=== PATIENT | male | born 1990 | race Caucasian/White ===

== ENCOUNTER 2025-08-29 16:02 | Emergency (ER) | payer OTHER, SELFPAY ==
--- OUTSIDE RECORDS SUMMARY | 2025-08-29 16:10 | XMS_ITS | Encounter Summary ---
Author Organization [facility] Address [facility] [place] [address] Care Team Providers Care Raw Cheese Worker Name Role Phone Ada Gonzales [facility] Primary Care Provider [phone] Stephan Diggs MD Unavailable Unavailable Sis Mohr MD Unavailable [phone]- [phone] Mohinder Salinas MD Unavailable [phone] Pura Duran MD Unavailable [phone] Anai Kat MD Primary Care Provider [phone] Encounter Details Date Type Department Care Team (Late st Contact Info) Description 03/22/2022 MyChart Message Enc [facility] Family Medicine [address] [address] Gonzales [address] [address] Diabetic test Social History Tobacco Use Types Packs/Day Years Used Date Smoking Tobacco: Never Smokeless Tobacco: Never Alcohol Use Standard Drinks/Week Comments Yes 0 (1 standard drink = 0.6 oz pur e alcohol) rarely PHQ-2 Answer Date Recorded PHQ-2 Score - If the patient scores above 3, please move on to questions 3-9 0 03/21/2022 Sex and Gender Information Value Date Recorded Sex Assigned at Male 04/02/2025 11:01 AM CDT Legal Sex Male 7:35 PM CDT Gender Identity Not on file Sexual Orientation Not on file COVID-19 Exposure Response Date Recorded In the last 10 days, have yo u been in contact with someone who was confirmed or suspected to have Coronavirus/COVID-19? No / Unsure 03/21/2022 8:44 AM CDT documented as of this encounter Plan of Treatment Not on file documented as of this encounter Visit Diagnoses Not on filedocumented in this encounter Additional Health Concerns Infection Onset Date Last Indicated Resolved Time COVID-19 Rule Out 04/06/2022 04/06/2022 04/07/2022 4:06 PM CDT Assessment Noted Time PHQ-9 Depression Total Score: 0 03/15/20 11:02 AM CDT documented as of this encounter Care Teams Raw Cheese Worker Relationship Specialty Start Date End Date Ada Gonzales [facility] PCP - General Nurse Practitioner Family 07/01/18 809/26 Anai Kat MD [address] [place] [address] PCP - General FAMILY PRACTICE 05/04/24 Stephan Diggs MD CARDIOLOGY 12/30/18 Sis Mohr MD DERMATOLOGY 03/15/21 Mohinder Salinas MD [address] [facility] [address] [place] [id number] PULMONARY DISEASE 03/15/21 Pura Duran MD [address] [address] CARDIOLOGY 03/21/22 documented as of this encounter
--- OUTSIDE RECORDS SUMMARY | 2025-08-29 16:10 | XMS_ITS | Clinical Summary ---
Author Organization [facility] Address [facility]ly [facility] [place] [address] Care Team Providers Care Gasket Supervisor Name Role Phone Ada Gonzales NP Primary Care Provider Freeman Street MD Unavailable Allergies Active Allergy Reactions Criticality Noted Date Comments Lisinopril Swelling Medium Facial Swelling Minocycline Swelling,Rash Medium 04/09/2011 Reaction: Facial Swelling Medications aspirin 81 mg enteric coated tablet Take 1 tablet (81 mg total) by mouth every morning Active HYDROcodone-eitan taminophen (NORCO) 5-325 mg per tabletIndicatio ns:Pain Take 1-2 tablets by mouth every 4 (four) hours as needed for pain 30 tablet 4 Active Additional Information Patient not taking.Reported on 03/11/2025 docusate sodium (COLACE) 100 mg capsuleIndicati ons:constipatio n,TAKE WHILE ON NARCOTICS OR IF CONSTIPATED. STOP IF DIARRHEA OR LOOSE STOOLS Take 1 capsule (100 mg total) by mouth 2 (two) times a day 4 Active Additional Information Patient not taking.Reported on 03/11/2025 ketoconazole (NIZORAL) 2 % creamIndication s:Tinea corporis Apply topically daily 60 g 6 4 Active Additional Information Patient not taking.Reported on 03/11/2025 ketoconazole (NIZORAL) 2 % shampooIndicati ons:Tinea corporis Apply topically 3 (three) times a week Apply to damp skin, lather, leave on 5 minutes, and rinse 120 mL 3 4 Active Additional Information Patient not taking.Reported on 03/11/2025 semaglutide (Wegovy) 0.25 mg/0.5 mL auto-injectorIn dications:cardi ovascular event risk reduction in obesity Inject 0.25 mg under the skin every 7 days 2 mL 1 5 Active losartan (COZAAR) 100 mg tablet TAKE 1 TABLET BY MOUTH EVERY DAY 90 tablet 1 5 Active metoprolol XL (TOPROL-XL) 50 mg extended release tablet TAKE 1 TABLET BY MOUTH EVERY DAY 90 tablet 1 5 Active Active Problems Problem Noted Date Diagnosed Date Irreducible umbilical hernia 12/04/2023 Incarcerated umbilical hernia 12/04/2023 Hypertension 03/19/2023 Assessment & Plan (03/24/2024 10:22 AM CDT): SBP stable. Continue losartan 100 mg daily, and metoprolol 50 mg xl daily. BMP today. SBP stable at home 120 systolic. We made no changes today. Assessment & Plan (03/19/2023 10:38 AM CDT): SBP remains marginal. Increase losartan to 100 mg daily, BMP in one week with FLP. Encouraged exercise routine. And BP monitoring at home, one hour after medications. Obstructive sleep apnea 09/22/2021 Assessment & Plan (09/30/2024 10:50 AM SENIOR ADMINISTRATIVE SERVICES OFFICER): Due to ongoing symptoms, the patient will continue CPAP at 5-15 cm water pressure. Denied need for supplies. DME [facility] Assessment & Plan (09/25/2023 2:04 PM SENIOR ADMINISTRATIVE SERVICES OFFICER): Patient continue to wear his CPAP at auto titrating range 5-15 cm water pressure while sleeping. His DME is [facility] Assessment & Plan (09/25/2022 1:57 PM SENIOR ADMINISTRATIVE SERVICES OFFICER): Will continue with auto titrating CPAP set at 5-15 cm water pressure. Denied need for supplies. DME [facility] Assessment & Plan (09/22/2021 2:16 PM SENIOR ADMINISTRATIVE SERVICES OFFICER): Patient continue to wear CPAP in auto titrating range of 5-15 cm water pressure while sleeping. His DME is [facility]. I have sent an order over for new CPAP mask. 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 Coronary arteriosclerosis in [place] artery 03/10 Assessment & Plan (03/24/2024 10:23 AM CDT): Single vessel CAD, sp TALHA to LAD in 2011. Stable denies chest pain. Continue BB, ARB, Statin and ASA. Lipids in April 2023 stable LDL 50. Will check BMP and Lipid profile today and follow up with Dr. Cheung to establish care in 1 year. Assessment & Plan (03/19/2023 10:37 AM CDT): Single vessel CAD, sp TALHA to LAD in 2011. Stable denies chest pain. Continue BB, ARB, Statin and ASA. Lipids in March 2022, stable. Will check BMP and Lipid profile in one week. 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 Disease of pericardium 07/15/2010 Resolved Problems Problem Noted Date Diagnosed Date Resolved Date Patellofemoral pain syndrome 01/20/2014 12/07/2023 Fatigue 07/16/2013 12/07/2023 Chest pain 07/15/2010 12/07/2023 Surgical History Surgery Date Site/Laterality Comments CYST REMOVAL 09/03/2007 - 09/02/2008 neck cyst Medical History Medical History Date Comments Old myocardial infarction Histor y of myocardial infarction - (Added by TW Conv) Hypertension Adhd Migraine History of methicillin resis tant Staphylococcus aureus infection History of methicillin resistant Staphylococcus aureus infection - (Added by TW Conv) Family History Medical History Relation Name Comments Bleeding Disorder Father Family his tory of bleeding disorder - (Added by TW Conv) Coronary artery disease Father sten ts in 50s Arthritis Mother Family history of arthritis - (Added by TW Conv) Cancer Mother Family history of malignant neoplasm - (Added by TW Conv) Diabetes Mother Family history of diabetes mellitus - (Added by TW Conv) Heart disease Mother Family history of cardiac disorder - (Added by TW Conv) Hypertension Mother Family history of hypertension - (Added by TW Conv) Heart attack Paternal Grandfather Relation Name Status Comments Father Mother Paternal Grandfather Social History Tobacco Use Types Packs/Day Years Used Date Smoking Tobacco: Never Passive Smoke Exposure: Never Smokeless Tobacco: Never Tobacco Cessation:Counseling Given: Not Answered Alcohol Use Standard Drinks/Week Comments Yes 0 (1 standard drink = 0.6 oz pur e alcohol) AUDIT-C Answer Date Recorded Q1: How often do you have a drink containing alc ohol? Monthly or less 09/30/2024 Average Number of Drinks Not on file 025 Frequency of Binge Drinking Not on file 09/04 Personal Safety Answer Date Recorded Have you ever been in or are you currently in a harmful physical or emotional relationship or is someone making you feel afraid or unsafe? Denies 12/13/2023 Sex and Gender Information Value Date Recorded Sex Assigned at Not on file Legal Sex Male 9:53 PM SENIOR ADMINISTRATIVE SERVICES OFFICER Gender Identity Not on file Sexual Orientation Not on file Last Filed Vital Signs Vital Sign Reading Time Taken Comments Blood Pressure 115/77 03/11/2025 11:37 AM CDT Pulse 63 03/11/2025 11:37 AM CDT Temperature 36.2 C (97.1 F) 09/30/2024 10:35 AM SENIOR ADMINISTRATIVE SERVICES OFFICER Respiratory Rate 18 09/30/2024 10:35 AM SENIOR ADMINISTRATIVE SERVICES OFFICER Oxygen Saturation 96% 03/11/2025 11:37 AM CDT Inhaled Oxygen Concentration - - Weight 111.1 kg (245 lb) 03/11/2025 11:37 AM CDT Height 180.3 cm (5' 11) 03/11/2025 11:37 AM CDT Body Mass Index 34.17 03/11/2025 11:37 AM CDT Plan of Treatment Health Maintenance Due Date Last Done Comments Depression Screening 1988 Hepatitis C Screening 1988 Varicella Vaccines (1 of 2 - 13+ 2-dose series) 2001 Regular Well Visit/Exam 18-64 2006 HPV Vaccines (1 - 3-dose SCDM series) 2015 Covid-19 Vaccine ( - season) 2025 11/11/2020, 10/21/2020 Influenza Vaccine (#1) 2025 , 06/03/2019, 06/03/2018, Additional history exists DTaP/Tdap/Td Vaccine (4 - Td or Tdap) 06/15/2025 06/15/2015, 09/03/2014, 09/03/2014 Hepatitis B Screening Completed 09/05/1999 Pneumococcal vaccine <65 Aged Out No longer eligible based on patient's age to complete this topic Medical Devices Implanted Type Area Interlocker Maintainer Device Identifier Shelf Expiration Date Model / Serial / Lot [employer]/C R Bard Ventralex St Sepra Sorbaflex 3.2in [place] Open Bioresorbable [id number] - [id number] Implanted:Qty: 1 on 12/13/[address] MD at [facility] N/A: Umbilical [employer] Bard 03/30/2025 [id number] / / [id number] Insurance [facility] [employer] Address: [facility] [id number] [place] [address] [facility] Care Teams Gasket Supervisor Relationship Specialty Start Date End Date Ada Gonzales NP PCP - General Nurse Practitioner 03/11/[address] MD [address] [address] Consulting Physician General Surgery 12/13/23
--- OUTSIDE RECORDS SUMMARY | 2025-08-29 16:10 | XMS_ITS | Clinical Summary ---
Author Organization [facility] Address [address] [place] [address] Care Team Providers Care Family Law Legal Assistant Name Role Phone Stephan Diggs MD Unavailable Unavailable Sis Mohr MD Unavailable [phone] Mohinder Salinas MD Unavailable [phone] Pura Duran MD Unavailable [phone] Anai Kat MD Primary Care Provider [phone] Allergies Active Allergy Reactions Criticality Noted Date Comments Lisinopril Swelling Medium Facial Swelling Minocycline Other (see comment),Swelling 2010 Medications aspirin EC 81 MG EC tablet Take 1 tablet by mouth daily. 12/17/2017 Active metoprolol succinate ER (TOPROL-XL) 50 MG 24 hr tablet 03/10/2022 Act sienna losartan (COZAAR) 50 MG tablet 2022 Active Active Problems Problem Noted Date Diagnosed Date Hypertension 03/19/2023 Obstructive sleep apnea 09/22/2021 Overview (03/21/2022): Last Assessment & Plan: Patient continue to wear CPAP in auto titrating range of 5-15 cm water pressure while sleeping. His DME is [facility]. I have sent an order over for new CPAP mask. 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 Prediabetes 01/01/2019 Overview (04/02/2025): - last A1c 5.8 (2022) - today 5.6, counseled to continue lifestyle interventions Elevated LFTs 01/01/2019 Follicle cyst 07/01/2018 History of myocardial infarction, greater than 8 weeks ago 12/17/2017 Hypertension, essential, benign 12/17/2017 Mixed hyperlipidemia 12/17/2017 Encounter for routine adult health examination without abnormal findings 12/11/2017 Overview (04/02/2025): - vaccines: UTD - colon cancer screening: due at age 43 - denies family history of prostate cancer, denies urinary symptoms, does not have indication for PSA - RTC 1 yr, or sooner as needs arise Pericardial cyst 03/19/2017 Coronary arteriosclerosis in [place] artery 03/10 Patellofemoral pain syndrome 01/20/2014 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 Acne vulgaris 08/25/2011 Disease of pericardium 07/15/2010 Resolved Problems Problem Noted Date Diagnosed Date Resolved Date Fatigue 07/16/2013 12/30/2018 Chest pain 07/15/2010 12/30/2018 Immunizations Immunization Administration Dates Next Due Dtap (Generic) 09/03/2014 Fluzone 6 Months+ Quad (0.5 mL Prefilled Syringe) 07/08/2020 Influenza (Generic) 06/03/2019,06/03/2018 Influenza Adult (Generic) 06/03/2019,09/2017,06/15/2015,2013,06/24/2013 Tdap (Boostrix) 06/15/2015 Tdap (Generic) 09/03/2014 Family History Medical History Relation Comments Arthritis Father Hyperlipidemia Father Hypertension Mother Relation Status Comments Father Alive Mother Alive Social History Tobacco Use Types Packs/Day Years Used Date Smoking Tobacco: Never Smokeless Tobacco: Never Tobacco Cessation:Counseling Given: No Alcohol Use Standard Drinks/Week Comments Yes 0 (1 standard drink = 0.6 oz pur e alcohol) rarely PHQ-2 Answer Date Recorded Patient Health Questionnaire-2 Score 0 04/02/2025 Sex and Gender Information Value Date Recorded Sex Assigned at Male 04/02/2025 11:01 AM CDT Legal Sex Male 7:35 PM CDT Gender Identity Not on file Sexual Orientation Not on file Last Filed Vital Signs Vital Sign Reading Time Taken Comments Blood Pressure 129/78 04/02/2025 11:03 AM CDT Pulse 64 04/02/2025 11:03 AM CDT Temperature 36.7 C (98.1 F) 04/02/2025 11:03 AM CDT Respiratory Rate 16 04/02/2025 11:03 AM CDT Oxygen Saturation 95% 04/02/2025 11:03 AM CDT Inhaled Oxygen Concentration - - Weight 110 kg (242 lb 6.4 oz) 04/02/2025 11:03 A M CDT Height 180.3 cm (5' 11) 04/02/2025 11:03 AM CDT Body Mass Index 33.81 04/02/2025 11:03 AM CDT Plan of Treatment Health Maintenance Due Date Last Done Comments ASCVD Statin 1988 Hepatitis C 2006 Hepatitis B Vaccines (1 of 3 - 19+ 3-dose series) 2007 Pneumococcal Vaccine: Pediatrics (0 to 5 Years) and At-Risk Patients (6 to 49 Years) (1 of 2 - PCV) 2007 ASCVD LDL 03/21/2023 03/21/2022, 03/03, 12/25/2019, Additional history exists COVID-19 Vaccine ( - 2024- season) 2025 11/11/2020, 10/21/2020 Influenza Adult (#1) 2025 07/08/2020, 06/03/2019, 06/03/2019, Additional history exists DTaP, Tdap and Td Vaccines (4 - Td or Tdap) 06/15/2025 06/15/2015, 09/03/2014, 09/03/2014 Annual Physical 04/02/2026 04/02/2025, 0805/2023, 03/21/2022, Additional history exists HPV Vaccines (1 - 3-dose SCDM series) 04/03/2029 Postponed from 2015 (Per Provider Recommendation) PHQ-2 (Physician Fischer) Completed 04/02/2025 Hepatitis A Vaccines Aged Out No long er eligible based on patient's age to complete this topic Meningococcal B Vaccine Aged Out No l onger eligible based on patient's age to complete this topic Meningococcal Vaccine Aged Out No octavio denny eligible based on patient's age to complete this topic RSV Immunizations Under 20 Months Aged Out No longer eligible based on patient's age to complete this topic Procedures Procedure Name Priority Date/Time Associated Diagnosis Comments LIPID PANEL Routine 03/21/2022 9:21 AM CDT Routine general medical examination at a health care facility from Last 3 Months or Most Recently Relevant to Health Maintenance Results * LIPID PANEL (03/21/2022 9:21 AM CDT) CHOLESTEROL 112 <200 MG/DL 03/21/2022 3:20 PM CDT [facility] TRIGLYCERIDES 94 <150 MG/DL 03/21/2022 3:20 PM CDT [facility] HDL 51 >40 MG/DL 03/21/2022 3:20 PM CDT [facility] LDL-C 42 <100 MG/DL 03/21/2022 3:20 PM CDT [facility] VLDL CALCULATION 19 5 - 28 MG/DL 03/21/2022 3:20 PM CDT [facility] CHOL/HDL RATIO 2.2 0.0 - 4.0 03/21/2022 3:20 PM CDT [facility] LDL/HDL 0.8 0.41 - 2.13 03/21/2022 3:20 PM CDT [facility] NON HDL CHOLESTEROL 61 <140 MG/DL 03/21/2022 3:20 PM CDT [facility] 03/21/2022 9:21 AM CDT Ada Gonzales [facility] Final Resul t -RAYNE MORGANLamar SURESH [address] [place] [address], [place] [phone] from Last 3 Months or Most Recently Relevant to Health Maintenance Insurance [employer] Care Teams Family Law Legal Assistant Relationship Specialty Start Date End Date Anai Kta MD [address] [place] [address] PCP - General FAMILY PRACTICE 05/04/24 Stephan Diggs MD CARDIOLOGY 12/30/18 Sis Mohr MD DERMATOLOGY 03/15/21 Mohinder Salinas MD [address] [place] [id number] PULMONARY DISEASE 03/15/21 [place] [address] [place] [id number] CARDIOLOGY 03/21/22
[2025-08-29 16:12] VITALS: BP 142/83; PULSE 58; RESP 18; TEMP 36.1; O2SAT 97
--- NOTE | 2025-08-29 16:15 | ED.GENADULT ---
HPI - General Adult General Chief complaint: Headache Stated complaint: Head Pain Time Seen by Provider: 08/29/25 16:17 Source: patient Mode of arrival: ambulatory Limitations: no limitations History of Present Illness HPI narrative: 35-year-old male patient presents to [facility] with complaints of a headache the past 3 days. Patient states he does not have any history of migraine headaches. Patient is currently taking high blood pressure medications. Patient denies any chest pain or shortness of breath. Denies any vision changes. Denies any ear pain, sore throat or any sick symptoms that he is aware of. Patient states he did take some Excedrin today about 2 hours ago which she states has helped a little bit but states he has not been taking anything consistently. Denies any nausea vomiting or diarrhea. Related Data Allergies Allergy/AdvReac Type Severity Reaction Status Date / Time No Known Allergies Allergy Verified 08/29/25 16:14 Review of Systems Review of Systems: CONSTITUTIONAL: Denies fever, chills, or sweats. EYES: Denies visual changes, redness, or discharge. ENT: Denies rhinorrhea, congestion, sore throat, or otalgia. CARDIOVASCULAR: Denies chest pain, palpitations, or edema. RESPIRATORY: Denies cough or dyspnea. GASTROINTESTINAL: Denies abdominal pain, nausea, vomiting, or diarrhea. GENITOURINARY: Denies dysuria or hematuria. SKIN: Denies rash or itching. MUSCULOSKELETAL: Denies back pain, joint pain, or myalgia. NEUROLOGIC: Positive headache, denies numbness, or weakness. PSYCHIATRIC: Denies anxiety or depression. [facility] Past Medical History Medical History (Updated 08/29/25 @ 16:47 by Darleen Solo APRN) Hypertension Comments At the time of my signature I agree with nursing past medical history, surgical, social, and family history. There is no relevant family history pertinent to the presenting complaint. Exam Narrative: GENERAL: Well-appearing, well-nourished, and in no acute distress. HEAD: Normocephalic, atraumatic. EYES: PERRLA and EOMI. ENT: Nares clear, no rhinorrhea or epistaxis. Mucous membranes moist. bilateral TMs are clear no erythema or foreign bodies the canal. Posterior pharynx no erythema, tonsillar enlargement, exudates or lesions present. NECK: Supple. No lymphadenopathy CHEST: Clear to auscultation. No respiratory distress. HEART: Regular rate and rhythm. No murmur heard. Normal peripheral pulses. ABDOMEN: Soft, nontender, nondistended, normal active bowel sounds. EXTREMITIES: Normal range of motion. No edema. SKIN: Warm, dry, no rash. NEURO: Alert and oriented x4, GCS 15. Cranial nerves II through XII grossly intact. No focal neurological deficits. Normal muscle strength and tone. Normal deep tendon reflexes. Negative Babinski, normal finger to nose coordination he had normal heel to blas glide. Speech is clear. Normal gait. Negative Romberg and no pronator drift Course Course Level of Care: Express Care Visit Reevaluation(s) Reevaluation #1: re-evaluated patient notified him that his point of care testing for flu and COVID today are negative. Discussed with him that the EKG is pretty unremarkable as far as any acute issues except for his heart rate is a little low. Discussed with patient to continue to take the Excedrin for his headache may also take an antihistamine such as Zyrtec, Claritin or Anaya if this is a sinus headache that is occurring if his symptoms worsen at all he starts having any chest pain, shortness of breath worsening headache dizziness lightheadedness and he needs to go the ER right away for further evaluation. Patient verbalized understanding denies any other questions or concerns at this time. Date: 08/29/25 Time: 16:47 Vital Signs Vital signs: Vital Signs Temperature 36.1 C L 08/29/25 16:12 Pulse Rate 58 L 08/29/25 16:12 Respiratory Rate 18 08/29/25 16:12 Blood Pressure 142/83 H 08/29/25 16:12 Pulse Oximetry 97 08/29/25 16:12 Oxygen Delivery Room Air 08/29/25 16:12 Temperature 36.1 C L 08/29/25 16:12 Pulse Rate 58 L 08/29/25 16:12 Respiratory Rate 18 08/29/25 16:12 Blood Pressure 142/83 H 08/29/25 16:12 Pulse Oximetry 97 08/29/25 16:12 Oxygen Delivery Room Air 08/29/25 16:12 Vital signs reviewed. The patient has been informed that they may have pre-hypertension or Hypertension based on a BP reading in the department. I recommend that the patient call the primary care provider listed on their discharge instructions or a physician of their choice this week to arrange follow up for further evaluation of possible pre-hypertension or Hypertension MDM MDM Narrative Medical decision making narrative: Discussed with patient that we will go ahead and test him for viruses to see a could be causing his symptoms we will also check an EKG since he does have history of high blood pressure knee does present today with a slightly elevated blood pressure and a low heart rate. I will reassess this once this is completed if all things are negative most likely will discharge home and continue to encourage Excedrin use and hydration. Differential Diagnosis Differential Diagnosis: Differential diagnosis: Allergic rhinitis, chronic sinusitis, tonsillitis, acute sinusitis, infectious mononucleosis, seasonal influenza, pertussis, diphtheria, meningococcal disease, viral syndrome, viral bronchitis, RSV, COVID-19 ECG Data EKG #1: Interpretation: Sinus bradycardia. Possible lateral myocardial infarction, 30 MS Q-wave in lead 1/aVL /V5 /V6, of indeterminate age. Abnormal ECG. Interpretation based on default age of 38 years. Unconfirmed report. There is some artifact noted in leads 1, AVR, lead 2, aVL and no Q-wave is noted here. I do not see any obvious Q-waves in V5 or V6. bradycardia Critical Care Time Critical Care Time Critical Care Time: No Discharge Plan Discharge Clinical Impression: Headache Patient Disposition: Home Condition: Stable Instructions: Antibiotic Form, Acute Headache (DC) Additional Instructions: Most headaches are not serious on her usually relieved by Tylenol or ibuprofen. Do not give aspirin to children., Causes include migraines, stress, eye strain, infections (sinus or dental). Sometimes resting in a quiet, dark environment helps. Avoid vigorous exercise, loud noise, caffeine, stimulants, and alcohol. Rarely can indicate a serious disease, such as infection, high blood pressure, or bleeding in the brain. Headaches are usually diagnosed by the patient's history and examination. Sometimes the initial examination or test results are normal, even when there is a more serious problem, so it is important to follow-up with her doctor for further evaluation. Home care: Keep your follow-up appointment with her doctor. Take the pain medicine recommended by the provider. There might be some benefit from relaxation, massage, and rest. An ice pack to the head and neck might be helpful. Call your doctor or go to the ER if your condition worsens or: The headache is worse. There is temperature greater than 102 F (39 C) The neck becomes stiff or painful. Blurred vision, double vision, or eye pain occurs. Trouble walking or maintaining balance occurs. Dizziness, weakness, or passing out occurs. Confusion occurs. Vomiting occurs. No improvement occurs in 2 days. Patient Language: Amharic Follow-up/Referrals: PHYSICIAN,RESERVATION AGENT [Primary Care Provider, Internal Medicine] Time of Disposition: 16:46
--- NOTE | 2025-08-29 16:28 | ECG_ITS ---
Test Date: 2025-08-29 16:40:39 Measurements Intervals Sawyer Rate: 55 P: 9 IA: 162 QRS: -20 QRSD: 113 T: 118 QT: 372 QTc: 358 Interpretive Statements SINUS BRADYCARDIA DELAYED PRECORDIAL R/S TRANSITION MINIMAL Q WAVES- HIGH LATERAL LEADS BORDERLINE T WAVE ABNORMALITY- LAT/HIGH LAT LEADS BASELINE ARTIFACT- I, II, AVR, AVL BORDERLINE ECG No previous ECG available for comparison Electronically Signed On 08-29-2025 21:05:19 [employer] INSPECT[employer] by Jcarlos Toney D.O.
[2025-08-29 16:50] LABS: EDINFLUASCREEN Negative (Negative); EDINFLUBSCREEN Negative (Negative)
[2025-08-29 16:54] LABS: EDCOVIDSCREEN Negative (Negative)
== END 2025-08-29 17:26 | disposition home or self-care (01) ==
PROVIDERS: Emergency Provider Nurse Practitioner Family
DX: R51.9 Headache, unspecified (principal); R94.31 Abnormal electrocardiogram [ECG] [EKG]
CPT/HCPCS: 87426; 87804; 93005; 99213; G0463